=== PATIENT | female | born 1965 | race Caucasian/White ===

== ENCOUNTER 2025-03-22 06:37 | Emergency (ER) | payer MEDICAID, SELFPAY ==
[2025-03-22 06:41] VITALS: BMI 29.2
[2025-03-22 06:56] VITALS: BP 144/85; PULSE 91; RESP 19; TEMP 36.9; O2SAT 98
--- NOTE | 2025-03-22 07:04 | PD.EDNV ---
Nausea/Vomit./Diarrhea-RME/HPI General Chief complaint: Nausea/Vomiting/Diarrhea Stated complaint: VOMITING WWITH BLOOD IN VOMIT Time Seen by Provider: 03/22/25 06:48 Source: patient Arrival date/time: 03/22/25 06:37 60-year-old female with a history of type 2 diabetes, hypertension presents to the emergency room with a chief complaint of vomiting and diarrhea x 1 day. Patient states she also had an episode of vomiting with blood in it this morning. Mode of arrival: ambulatory Limitations: no limitations Related Data Home Medications ?Medication ?Instructions ?Recorded ?Confirmed amlodipine 5 mg tablet 5 mg PO BID 10/06/17 03/22/25 metformin 500 mg tablet 1,000 mg PO BID 10/06/17 03/22/25 metoprolol tartrate 25 mg tablet 50 mg PO DAILY 10/06/17 03/22/25 atorvastatin 20 mg tablet (Lipitor) 20 mg PO QDAY 03/22/25 03/22/25 Previous Rx's ?Medication ?Instructions ?Recorded sulfamethoxazole 800 1 tab PO BID #14 tabs 10/06/17 mg-trimethoprim 160 mg tablet (Bactrim DS) acetaminophen 500 mg tablet 1,000 mg (2 x 500 mg) PO QID PRN 12/05/19 (Tylenol Extra Strength) fever or pain #30 tabs sulfamethoxazole 800 1 tab PO BID #14 tabs 03/22/25 mg-trimethoprim 160 mg tablet (Bactrim DS) Allergies Allergy/AdvReac Type Severity Reaction Status Date / Time latex Allergy Intermediate BURNING Verified 03/22/25 06:45 Review of Systems Review of Systems Systems Reviewed: All systems reviewed, normal except as documented Constitutional Constitutional: Reports system reviewed and no additional complaints, except as documented, Denies fatigue, Denies fever(s), Denies headache(s) and Denies weakness Eyes Eyes: Reports system reviewed and no additional complaints, except as documented, Denies blurry vision and Denies change in vision ENT Ears, Nose, Mouth, and Throat: Reports system reviewed and no additional complaints, except as documented, Denies otalgia, Denies headache(s), Denies nasal congestion, Denies throat swelling and Denies vertigo Cardiovascular Cardiovascular: Reports system reviewed and no additional complaints, except as documented, Denies chest pain, Denies dyspnea and Denies dyspnea on exertion Respiratory Respiratory: Reports system reviewed and no additional complaints, except as documented, Denies chest congestion, Denies cough, Denies dyspnea, Denies dyspnea on exertion and Denies wheezing Gastrointestinal Gastrointestinal: Reports system reviewed and no additional complaints, except as documented, Denies abdominal pain, Denies cramping, Reports diarrhea, Reports hematemesis, Reports nausea and Reports vomiting Genitourinary Genitourinary: Reports system reviewed and no additional complaints, except as documented Musculoskeletal Musculoskeletal: Reports system reviewed and no additional complaints, except as documented and Denies back pain Integumentary/Breasts Skin/Breast: Reports system reviewed and no additional complaints, except as documented and Denies wounds Neurologic Neurologic: Reports system reviewed and no additional complaints, except as documented, Denies confusion, Denies headache(s), Denies lack of coordination, Denies vertigo and Denies weakness Psychiatric Psychiatric: Reports system reviewed and no additional complaints, except as documented, Denies anxiety, Denies confusion, Denies depression, Denies paranoia, Denies suicidal ideation and Denies tactile hallucinations Endocrine Endocrine: Reports system reviewed and no additional complaints, except as documented and Denies fatigue Hematologic/Lymphatic Hematologic/Lymphatic: Reports system reviewed and no additional complaints, except as documented and Denies lymphadenopathy Allergic/Immunologic Allergic/Immunologic: Reports system reviewed and no additional complaints, except as documented, Denies throat swelling, Denies urticaria and Denies wheezing Past Medical History Past Medical History CARDIAC: Negative Congestive Heart Failure RESPIRATORY: Negative Chronic Obstructive Pulmonary Disease (COPD) GENITOURINARY: Negative Renal Disease ENDOCRINE: Negative Diabetes Mellitus Type 1 or Diabetes Mellitus Type 2 Social History SMOKING STATUS: Never smoker ED Exam General Limitations: Present no limitations General appearance: Present alert and in no apparent distress Head Head exam: Present atraumatic Eye Eye exam: Present normal appearance, PERRL and EOMI ENT ENT exam: Present normal exam, normal oropharynx and mucous membranes moist Neck Neck exam: Present normal inspection, full ROM and trachea midline Chest Chest inspection: Present normal inspection and symmetric chest wall rise Respiratory Respiratory exam: Present normal lung sounds bilaterally Cardiovascular Cardiovascular exam: Present regular rate, normal rhythm and normal heart sounds Abdominal Exam Abdominal exam: Present soft and normal bowel sounds; Absent distention, tenderness, guarding, rebound or rigidity Extremities Exam Extremities exam: Present normal inspection and full ROM Back Exam Back exam: Present normal inspection and full ROM Neurological Exam Neurological exam: Present alert, oriented X3 and CN II-XII intact Psychiatric Psychiatric exam: Present normal affect and normal mood Skin Skin exam: Present warm, dry, intact and normal color Course Quality Measures none Orders Category Date Time Status Insert IV STAT Care 03/22/25 08:04 Completed CBC Stat Lab 03/22/25 07:08 Completed CMP [Comprehensive Metabolic Panel] Stat Lab 03/22/25 07:08 Completed Lipase Stat Lab 03/22/25 07:08 Completed PT [Prothrombin Time with INR] Stat Lab 03/22/25 07:08 Completed PTT [Partial Thromboplastin Time] Stat Lab 03/22/25 07:08 Completed UA [Urinalysis] Stat Lab 03/22/25 07:25 Completed Urine Culture Stat Lab 03/22/25 07:25 Received Ondansetron Odt [Zofran Odt] Med 03/22/25 07:01 Discontinued 4 mg PO X1 ONE Sodium Chloride 0.9% 1000 ml [Ns] 1,000 ml Med 03/22/25 08:04 Discontinued IV 999 mls/hr Vital Signs Vital signs: Vital Signs Temperature 98.4 F 03/22/25 06:56 Pulse Rate 91 03/22/25 06:56 Respiratory Rate 19 03/22/25 06:56 Blood Pressure 144/85 H 03/22/25 06:56 Pulse Oximetry (%) 98 03/22/25 06:56 Oxygen Delivery Method Room Air 03/22/25 06:56 Nausea/Vomiting/Diarrhea MDM Narrative MDM Narrative:: 60-year-old female with a history of type 2 diabetes, hypertension presents to the emergency room with a chief complaint of vomiting and diarrhea x 1 day. Patient states she also had an episode of vomiting with blood in it this morning. Patient is hemodynamically stable and in no apparent distress Physical examination shows a soft nontender abdomen. The patient has a strong and regular rhythm S1 and S2 noted CBC CMP were negative for any acute findings. Urinalysis showed a urinary tract infection. Patient was discharged and educated to follow-up with primary care provider in the next 24 to 48 hours and return to the emergency room for any evidence of worsening signs or symptoms Patient data External records reviewed:: [facility] previous records Clinical information provided by:: patient Social determinants that could affect healthcare access:: none Patient has the following chronic illnesses:: Hypertension, type 2 diabetes How is presenting disease/condition affected by chronic disease/condition?: no chronic disease Evaluation data The following diagnostics were reviewed and interpreted by me:: lab results and radiology exam(s) Lab and/or radiology exams considered but not ordered:: Labs and radiology exams considered and ordered Interpretation Summary: N/A Medications / Prescriptions Medications / Prescriptions considered but not ordered:: Medication given Medication administrations:: Medication Administration History Discontinued Medications Sodium Chloride (Ns) 1,000 mls @ 999 mls/hr IV .Q1H1M ONE Stop: 03/22/25 09:04 Last Admin: 03/22/25 09:19 Dose: 999 mls/hr Documented By: Ondansetron HCl (Ondansetron Odt 4 Mg Tabrap) 4 mg PO X1 ONE; Protocol Stop: 03/22/25 07:02 Last Admin: 03/22/25 07:29 Dose: Not Given Documented By: JANEEN Non-Admin Reason: Patient Refused Medication given Consultations Consultation(s) initiated? (list below): No Diagnosis Nausea Differential Diagnosis: food poisoning, gastroenteritis, dehydration and other (Urinary tract infection) Most likely diagnosis given after review of the tests above:: Urinary tract infection Admission Indicated Admission indicated?: not indicated Admission Request Was there a request for admission?: No Disposition Plan Disposition Plan: Discharge Discharge Attestation Discharge Attestation: The patient and all family members were given an opportunity to ask questions and understood the discharge instructions. Discharge instructions specifically effects, indications for sooner follow up or return to the emergency department, and the expected course of current diagnosis. Patient condition: Stable Discharge Plan Plan Patient Disposition: HOME (Self Care) Discharge Disposition comment: Stable Prescriptions/Referrals Prescriptions/Med Rec: New sulfamethoxazole-trimethoprim [Bactrim DS] 800-160 mg tablet 1 tab PO BID Qty: 14 0RF No Action metformin 500 mg Tablet 1,000 mg PO BID amlodipine 5 mg Tablet 5 mg PO BID metoprolol tartrate 25 mg Tablet 50 mg PO DAILY sulfamethoxazole-trimethoprim [Bactrim DS] 800-160 mg tablet 1 tab PO BID Qty: 14 0RF acetaminophen [Tylenol Extra Strength] 500 mg tablet 1,000 mg PO QID PRN (Reason: fever or pain) Qty: 30 0RF atorvastatin [Lipitor] 20 mg tablet 20 mg PO QDAY Referrals: Ashutosh Armendariz FNP [Primary Care Provider] - In 1 week Problem List Clinical Impression: Urinary tract infection, Hyperglycemia Patient/Caregiver Discharge Instructions Education Materials: High Blood Sugar (Hyperglycemia), ED CYSTITIS Female Adult Additional Instructions: Please follow-up with your primary care provider in the next 24 to 48 hours Your blood work showed an elevated blood sugar level. Please follow-up with your primary care provider for further management Your urinalysis showed a urinary tract infection. Antibiotics were sent to your pharmacy please pick them up and take them as indicated For any evidence of worsening signs or symptoms return to emergency room immediately Print Language: Welsh Stand Alone Forms: Amy Award Info., Work/School Release, Patient Portal Info Letter PA/DIRECT MAIL MANAGER Supervising Physician PA/DIRECT MAIL MANAGER Supervising Physician: Dr. Guajardo
[2025-03-22 07:29] LABS: Basophils # (Auto) 0.1 Thou/mm3 (0.0-0.2); Basophils % (Auto) 1 % (0-2.5); Eosinophils # (Auto) 0.2 Thou/mm3 (0.0-0.5); Eosinophils % (Auto) 1 % (0-10); Hematocrit 44.6 % (36.0-46.0); Hemoglobin 14.9 g/dL (12.0-16.0); Immature Granulocytes Auto 0.06 Thou/mm3 (0.00-0.00); Lymphocytes # (Auto) 1.9 Thou/mm3 (1.0-4.8); Lymphocytes % (Auto) 16 % (10-50); Mean Corpuscular HGB Conc 33.4 g/dl (31.0-37.0); Mean Corpuscular Hemoglobin 28.1 pg (25.0-35.0); Mean Corpuscular Volume 84 fL (80-100); Monocytes # (Auto) 0.9 Thou/mm3 (0.0-0.8); Monocytes % (Auto) 8 % (0-12); Neutrophils # (Auto) 9.0 Thou/mm3 (1.8-7.7); Neutrophils % (Auto) 74 % (37-80); Nucleated Red Blood Cell # 0.00 Thou/mm3 (0.00-0.00); Nucleated Red Blood Cell % 0 /100 WBC (0); Platelet Count 309 Thou/mm3 (140-440); RDW Standard Deviation 39.0 fL (36.4-46.3); Red Blood Count 5.30 Miln/mm3 (4.00-5.20); White Blood Count 12.1 Thou/mm3 (3.6-11.0)
[2025-03-22 07:45] LABS: INR 1.0 (0.9-1.3); Partial Thromboplastin Time 23.2 Seconds (22.0-36.0); Prothrombin Time 10.3 Seconds (9.0-12.2)
[2025-03-22 07:47] LABS: Collection Type, Urine Clean Catch
[2025-03-22 07:48] LABS: Alanine Aminotransferase 27 U/L (10-49); Albumin, Serum 4.8 gm/dL (3.4-4.8); Albumin/Globulin Ratio 1.5 (1.2-2.2); Alkaline Phosphatase 88 U/L (46-116); Anion Gap 12 (7-16); Aspartate Amino Transferase 21 U/L (0-34); BUN/Creatinine Ratio 13 Ratio (12-20); Bilirubin,Total 0.4 mg/dL (0.3-1.2); Blood Urea Nitrogen 12 mg/dL (9-23); Calcium 9.7 mg/dL (8.3-10.6); Calcium (Corrected) 9.7 mg/dL (8.5-10.1); Carbon Dioxide 24.9 mMol/L (20.0-31.0); Chloride 101 mMol/L (98-107); Creatinine (Component) 0.9 mg/dL (0.6-1.3); Estimated Creatinine Clearance 65.1 mL/min (>60); Globulin 3.2 gm/dL (2.3-3.5); Lipase 59 U/L (12-53); Osmolality,Calculated 294 (275-295); Potassium 4.5 mMol/L (3.4-5.1); Sodium 138 mMol/L (136-145); Total Protein 8.0 gm/dL (5.7-8.2); eGFR > 60 See Note
[2025-03-22 07:54] LABS: Glucose 435 mg/dL (74-106)
[2025-03-22 08:02] VITALS: BP 147/80; PULSE 94; RESP 18; TEMP 36.8; O2SAT 95
[2025-03-22 08:30] LABS: Bilirubin,Urine Negative (Negative); Blood,Urine Negative (Negative); Clarity,Urine Clear (Clear/Hazy); Color,Urine Lt-Yellow (Lt Yel-Yel); Glucose, Urine 4+ (Negative); Ketones,Urine 1+ (Negative); Leukocyte Esterase,Urine Positive (Negative); Nitrite,Urine Negative (Negative); PH,Urine 6.0 (5.0-7.0); Protein,Urine 1+ (Neg - Trace); RBC,Urine 8 /hpf (0-3); Specific Gravity,Urine 1.037 (1.001-1.035); Squamous Epithelial Cell,Urine 3 /hpf (0-5); Urobilinogen,Urine Negative mg/dL (0.0-1.0); WBC,Urine 69 /hpf (0-5)
[2025-03-22] MEDS: SODIUM CHLORIDE 0.9% 1000 ML 1,000 ML 999 ML IV (09:19)
[2025-03-22 10:15] VITALS: BP 138/87; PULSE 86; RESP 18; TEMP 37; O2SAT 97
== END 2025-03-22 10:48 | disposition home or self-care (01) ==
PROVIDERS: Emergency Provider Nurse Practitioner Family; PCP Nurse Practitioner Family
DX: N30.90 Cystitis, unspecified without hematuria (principal); E11.65 Type 2 diabetes mellitus with hyperglycemia; I10 Essential (primary) hypertension; Z79.84 Long term (current) use of oral hypoglycemic drugs
CPT/HCPCS: 36415; 80053; 81001; 83690; 85025; 85610; 85730; 87077; 87086; 87186; 99283; J7030